=== PATIENT | male | born 1965 | race Caucasian/White ===

== ENCOUNTER 2016-12-05 05:48 | Day surgery (SDC) | payer MEDICARE ==
[2016-12-05] MEDS ORDERED: Lactated Ringers 1,000 ML IV SCH (06:30)
[2016-12-05] MEDS ORDERED: DIPRIVAN 200 MG/20 ML IV ONE (08:00)
[2016-12-05] MEDS ORDERED: Versed 2 MG/2 ML Injection IV ONE (08:00)
[2016-12-05 08:57] VITALS: BP 143/87; PULSE 74; O2SAT 99
--- NOTE | 2016-12-05 10:27 | OP ---
SURGERY DATE/TIME: 12/05/2016723 PREOPERATIVE DIAGNOSES: 1) Screening colonoscopy. 2) Family history of colon cancer. POSTOPERATIVE DIAGNOSIS: Distal sigmoid polyp. PROCEDURE: Colonoscopy. SURGEON: Dereje Bella M.D. ANESTHESIA: MAC by Calvin Soto CRNA. ESTIMATED BLOOD LOSS: Minimal. SPECIMENS: There was one hot forceps polypectomy from distal sigmoid colon polyp. DESCRIPTION OF PROCEDURE: After informed written consent was obtained, the patient was taken to the endoscopy suite. He underwent monitored anesthesia and a digital rectal exam showed normal sphincter tone and no internal lesions. The scope was inserted into the rectum and sequentially the entire colonic mucosa was traversed. The level of cecum was reached and verified with direct visualization of ileocecal valve. Upon withdrawal careful mucosal inspection revealed liquid stool throughout much of the colon but prep was noted to be fair overall. When I reached the level of the distal sigmoid colon there was a small flat sessile polyp present which was grasped with forceps cauterized and removed in its entirety. Good hemostasis and adequate removal were verified with visual inspection after removal. Upon further withdrawal no other abnormalities were encountered. Prior to withdrawal retroflexion was performed and showed no internal lesions. The scope was removed and the patient was transferred to the recovery room in excellent condition.
== END 2016-12-05 09:03 | disposition home or self-care (01) ==
LOC: SDC 05:48
PROVIDERS: ATTEND Family Medicine
PROC: 0DBN8ZX Excision of Sigmoid Colon, Via Natural or Artificial Opening Endoscopic, Diagnostic (ICD-10-PCS; principal; 2016-12-05)
DX: D12.5 Benign neoplasm of sigmoid colon (principal); Z80.0 Family history of malignant neoplasm of digestive organs
CPT/HCPCS: 00810; 36415; 88305; J2250; J2704

== ENCOUNTER 2024-06-26 14:55 | Emergency (ER) | payer MEDICARE, OTHER ==
[2024-06-26 16:08] VITALS: TEMP 96.9
[2024-06-26 16:30] VITALS: BP 88/50; PULSE 73; RESP 10; O2SAT 90
== END 2024-06-26 17:38 | disposition left against medical advice (07) ==
LOC: ED 14:55
DX: R51.9 Headache, unspecified (principal)
CPT/HCPCS: 99281

== ENCOUNTER 2025-01-02 12:44 | Emergency (ER) | payer MEDICARE, OTHER ==
--- NOTE | 2025-01-02 13:24 | ERPHSYRPT ---
- History of Present Illness Time Seen by Provider: 01/02/25 13:21 Source: patient Exam Limitations: no limitations Patient Subjective Stated Complaint: pt here for pain to left thumb since yesterday after dog pulled on the leash. Triage Nursing Assessment: pt arrived per wc alert, resp easy, skin w/d/p. has bruising and swelling to left thumb, strong radial pulse Physician History: 59 year old male presents with left thumb pain after he had his hand caught in a leash yesterday. Endorses bruising and swelling to the left thumb. Denies any numbess or tingling in his fingers. Occurred: yesterday Method of Injury: twisted Quality: constant Severity of Pain-Max: moderate Severity of Pain-Current: moderate Extremities Pain Location: thumb: left Modifying Factors: Improves With: nothing Associated Symptoms: none Allergies/Adverse Reactions: No Known Drug Allergies Allergy (Verified 01/02/25 12:54) Home Medications: Nitroglycerin 0.4 mg Tablet [Nitrostat 0.4 MG Tablet] 0.4 mg SL Q5MIN PRN MR X 3 PRN 01/05/15 [History] Gabapentin 800 mg PO QID 01/02/25 [History] Hydrocodone/Acetaminophen [Hydrocodone-Acetamin 7.5-325] 1 ea DAILY 01/02/25 [History] Midodrine HCl 1 ea DAILY 01/02/25 [History] Hx Tetanus, Diphtheria Vaccination/Date Given: No Hx Influenza Vaccination/Date Given: No (03/31/15) Hx Pneumococcal Vaccination/Date Given: No (Prevnar 03/31/15) Immunizations Up to Date: Yes Travel Risk - International Travel Have you traveled outside of the country in past 3 weeks: No - Emerging Infectious Disease Are you exhibiting symptoms associated with any current EIDs: No - Review of Systems Constitutional: No Fever, No Chills Eyes: No Symptoms Ears, Nose, & Throat: No Symptoms Respiratory: No Cough, No Dyspnea Cardiac: No Chest Pain, No Edema, No Syncope Abdominal/Gastrointestinal: No Abdominal Pain, No Nausea, No Vomiting, No Diarrhea Genitourinary Symptoms: No Dysuria Musculoskeletal: Injury, Other (left thumb pain and bruising), No Back Pain, No Neck Pain Skin: No Rash Neurological: No Dizziness, No Focal Weakness, No Sensory Changes Psychological: No Symptoms Endocrine: No Symptoms All Other Systems: Reviewed and Negative - Past Medical History Pertinent Past Medical History: Yes Neurological History: Peripheral Neuropathy ENT History: No Pertinent History Cardiac History: Coronary Artery Disease, Peripheral Vascular Disease Respiratory History: COPD Endocrine Medical History: No Pertinent History Musculoskeletal History: No Pertinent History GI Medical History: No Pertinent History History: No Pertinent History Psycho-Social History: No Pertinent History Male Reproductive Disorders: No Pertinent History Other Medical History: PSH: R ABOVE KNEE AMPUTATION, R CAROTID STENT, GROIN STENT, SEVERAL HEART CATHS, FEMORAL ARTERY BYPASS, SEVERAL VEIN BLOCKAGE SURGERIES ON R LE PRIOR TO AMPUTATION, L 5TH TOE AMPUTATION - Past Surgical History Past Surgical History: Yes Neuro Surgical History: No Pertinent History Cardiac: Cardiac Catheterization, Other Respiratory: No Pertinent History Gastrointestinal: No Pertinent History Genitourinary: No Pertinent History Musculoskeletal: No Pertinent History Male Surgical History: No Pertinent History Other Surgical History: Right Carotid Endarectomy 2011. cardiac cath 2011, 2014. bilat lower leg amputation - Social History Smoking Status: Current every day smoker How long have you smoked: 42 Exposure to second hand smoke: Yes Drug Use: none - Social Determinants of Health Will the patient participate in the screening: Declined to provide - Nursing Vital Signs Nursing Vital Signs: Pain Scale Pain Intensity 10 - Physical Exam General Appearance: alert Eyes, Ears, Nose, Throat Exam: moist mucous membranes Neck Exam: non-tender, supple Cardiovascular/Respiratory Exam: chest non-tender, normal breath sounds, regular rate/rhythm, no respiratory distress Abdominal Exam: non-tender, No guarding Back Exam: normal inspection, No vertebral tenderness Shoulder Exam: normal inspection, no evidence of injury Elbow/Forearm Exam: normal inspection, no evidence of injury Hand Exam: bone tenderness, ecchymosis, limited ROM, swelling Neuro/Tendon Exam: normal sensation, normal motor functions Mental Status Exam: alert, oriented x 3, cooperative Skin Exam: normal color, warm, dry Ordered Tests: Active Orders 24 hr Category Date Time Status HAND (MINIMUM 3 VIEWS) Stat Exams 01/02/25 13:20 Taken - Progress Progress: improved Progress Note: 01/02/25 13:23 Differential diagnosis including but not limited to fracture, sprain, strain. Plan to obtain xray of the left hand 01/02/25 14:05 Patient's x-ray per my instructions patient does have some mild snuffbox tenderness. Patient will be placed in thumb spica and have outpatient follow up with orthopedic doctor. - Departure Clinical Impression: Injury of thumb, left Condition: Stable Critical Care Time: No Referrals: [facility] [Primary Care Provider, UNKNOWN] - [facility]-Ortho M-F [phone] Instructions: Splint care - ED discharge instructions
--- NOTE | 2025-01-02 21:44 | XRAY ---
Indication: Thumb pain. Comparison: July 08, 2017 3 view left hand demonstrates new mildly angulated fracture proximal shaft 1st metacarpal with soft tissue swelling. Elsewhere there remains osteopenia, mild degenerative changes all IP joints, radiocarpal degenerative joint space narrowing, and radial artery calcifications.
== END 2025-01-02 14:21 | disposition home or self-care (01) ==
LOC: ED 12:44
DX: S69.92XA Unspecified injury of left wrist, hand and finger(s), initial encounter (principal); X50.0XXA Overexertion from strenuous movement or load, initial encounter; Y93.K1 Activity, walking an animal; M79.645 Pain in left finger(s); Z79.891 Long term (current) use of opiate analgesic; Z79.899 Other long term (current) drug therapy; Z72.0 Tobacco use